=== PATIENT | male | born 1970 | race African-American/Black ===

== ENCOUNTER 2019-02-16 08:41 | Emergency (ER) | payer MEDICAID ==
[~2019-02-16] VITALS: Ht 172.7 cm; Wt 97.5 kg
[2019-02-16 09:17] VITALS: BP 125/85
[2019-02-16] MEDS ORDERED: HYDROcodone-ACET 5/325MG TAB PO ONE (09:30)
[2019-02-16] MEDS ORDERED: KETOROLAC TROMETH 60MG/2ML VIAL IM ONE (09:30)
== END 2019-02-16 11:04 | disposition home or self-care (01) ==
LOC: ER 08:41
DX: R07.81 Pleurodynia (principal); V49.49XA Driver injured in collision with other motor vehicles in traffic accident, initial encounter; Y93.89 Activity, other specified; Y92.488 Other paved roadways as the place of occurrence of the external cause; Y99.8 Other external cause status
CPT/HCPCS: 71101; 96372; 99283; J1885

== ENCOUNTER 2019-04-03 12:33 | Emergency (ER) | payer MEDICAID ==
[~2019-04-03] VITALS: Ht 172.7 cm; Wt 90.9 kg
[2019-04-03 12:40] VITALS: BP 114/85
== END 2019-04-03 15:30 | disposition left against medical advice (07) ==
LOC: ER 12:33
DX: S00.83XA Contusion of other part of head, initial encounter (principal); W22.8XXA Striking against or struck by other objects, initial encounter; Y93.89 Activity, other specified; Y92.89 Other specified places as the place of occurrence of the external cause; Y99.8 Other external cause status
CPT/HCPCS: 70110